=== PATIENT | female | born 1960 | race Caucasian/White ===

== ENCOUNTER 2022-05-20 14:30 | Observation (INO) | payer BC ==
[2022-05-20 16:02] LABS: #Basophils 0.1 10x3/uL (0.0-0.2); #Eosinphils 0.2 10x3/uL (0.0-0.5); #Monocytes 0.5 10x3/uL (0.0-1.1); #Neutrophils 5.2 10x3/uL (1.5-8.4); %Basophils 0.8 % (0.0-2.0); %Lymphocytes 22.3 % (18.0-47.0); %Monocytes 6.4 % (0.0-10.0); %Neutrophils 68.1 % (40.0-75.0); Hemoglobin 14.3 g/dL (12.0-15.5); Mean Corpuscular HGB CONC 33.4 g/dL (32.0-36.0); Mean Corpuscular Hemoglobin 29.8 pg (27.0-33.0); Mean Corpuscular Volume 89.2 fl (81.6-98.3); Mean Platelet Volume 11.5 fl (7.4-10.4); Platelet Count 269 10x3/uL (150-450); RBC Distribution Width 12.2 % (11.5-14.5); White Blood Cell (WBC) Count 7.6 10x3/uL (3.5-10.5)
[2022-05-20] MEDS ORDERED: Nitroglycerin 2% Ointment 1 INCH/1 GM Packet ONE (16:09)
[2022-05-20] MEDS ORDERED: Aspirin Chewable 81 MG TAB ONE (16:09)
[2022-05-20 16:12] LABS: ALT (SGPT) 31 U/L (8-55); AST (SGOT) 19 U/L (5-34); Albumin 4.5 g/dL (3.4-4.8); Alkaline Phosphatase 106 U/L (40-110); Anion Gap 14 mmol/L (10-20); BUN (Urea Nitrogen) 24 mg/dL (9.8-20.1); Bilirubin, Total 0.3 mg/dL (0.2-1.2); Calc. Creatinine Clearance 0 mL/min (70-130); Calcium 9.4 mg/dL (7.8-10.44); Carbon Dioxide 29 mmol/L (23-31); Chloride 96 mmol/L (98-107); Estimated GFR 79; Globulin 2.3 g/dL (2.4-3.5); Glucose 124 mg/dL (80-115); Lipase 16 U/L (8-78); Potassium 4.3 mmol/L (3.5-5.1); Protein, Total 6.8 g/dL (5.8-8.1); Sodium 135 mmol/L (136-145)
[2022-05-20 16:25] LABS: Bilirubin Neg (Negative); Blood, Urine Negative (Negative); Clarity Clear (Clear); Glucose, Urine (Dipstick) Normal (Negative); Ketone, Urine Negative (Negative); Leukocyte Negative (Negative); Nitrite Negative (Negative); Protein, Urine (Dipstick) Negative (Neg-Trace); Urobilinogen Normal mg/dL (Less than 2)
[2022-05-20] MEDS ORDERED: Nitroglycerin 0.4 MG TAB (25 Tab Bottle) SL PRN (18:51)
[2022-05-20] MEDS ORDERED: Ondansetron PF 4 MG/2 ML Vial IVP PRN (18:54)
[2022-05-20] MEDS ORDERED: Ondansetron ODT 4 MG TAB PO PRN (18:54)
[2022-05-20 19:00] LABS: Troponin I Less than 0.010 ng/mL (< 0.028)
[2022-05-20] MEDS ORDERED: Electrolyte Replacement Protocol 1 EACH FS SCH (19:00)
[2022-05-20] MEDS: Apixaban 5 MG TAB PO SCH (20:28)
[2022-05-20] MEDS ORDERED: Atorvastatin Calcium 10 MG TAB PO SCH (21:00)
[2022-05-20 22:15] LABS: Troponin I Less than 0.010 ng/mL (< 0.028)
[2022-05-20] MEDS: Acetaminophen 325 MG TAB PO PRN (22:36)
[2022-05-20] MEDS: Nitroglycerin 2% Ointment 1 INCH/1 GM Packet TOP SCH (22:39)
[2022-05-20 22:49] VITALS: BMI 46.3
[2022-05-21 04:11] LABS: #Basophils 0.1 10x3/uL (0.0-0.2); #Eosinphils 0.2 10x3/uL (0.0-0.5); #Monocytes 0.6 10x3/uL (0.0-1.1); #Neutrophils 4.5 10x3/uL (1.5-8.4); %Basophils 0.7 % (0.0-2.0); %Eosinophils 3.1 % (0.0-6.0); %Lymphocytes 28.1 % (18.0-47.0); %Monocytes 8.1 % (0.0-10.0); %Neutrophils 59.7 % (40.0-75.0); Hemoglobin 12.9 g/dL (12.0-15.5); Mean Corpuscular HGB CONC 33.5 g/dL (32.0-36.0); Mean Corpuscular Hemoglobin 30.1 pg (27.0-33.0); Platelet Count 244 10x3/uL (150-450); RBC Distribution Width 12.2 % (11.5-14.5); Red Blood Cell (RBC) Count 4.28 10x6/uL (3.90-5.03); White Blood Cell (WBC) Count 7.5 10x3/uL (3.5-10.5)
[2022-05-21 04:19] LABS: Anion Gap 15 mmol/L (10-20); BUN (Urea Nitrogen) 22 mg/dL (9.8-20.1); Calc. Creatinine Clearance 145 mL/min (70-130); Calcium 9.3 mg/dL (7.8-10.44); Carbon Dioxide 25 mmol/L (23-31); Cardiac Risk 2.8 (Less than 4.5); Chloride 98 mmol/L (98-107); Cholesterol 133 mg/dl (< 200 Desired); Estimated GFR 87; Glucose 113 mg/dL (80-115); HDL Cholesterol 48 mg/dL (>60 Neg Risk); LDL Cholesterol, Calculated 66 mg/dL; Magnesium 1.6 mg/dL (1.6-2.6); Potassium 3.7 mmol/L (3.5-5.1); Sodium 134 mmol/L (136-145); Triglycerides 96 mg/dL (Less than 150)
[2022-05-21] MEDS: Nitroglycerin 2% Ointment 1 INCH/1 GM Packet TOP SCH ×2 (05:29→15:39)
[2022-05-21] MEDS: Acetaminophen 325 MG TAB PO PRN ×2 (05:32→15:42)
[2022-05-21] MEDS ORDERED: Levothyroxine Sodium 75 MCG TAB PO SCH (06:00)
[2022-05-21] MEDS ORDERED: Magnesium 2 GM/50 ML(in water) 2 GM in Premix Bag 1 BAG IVPB SCH (08:00)
[2022-05-21] MEDS: Apixaban 5 MG TAB PO SCH (08:44)
[2022-05-21] MEDS: Carvedilol 25 MG TAB PO SCH ×2 (08:46→17:16)
[2022-05-21] MEDS ORDERED: FLUoxetine HCl 20 MG CAP PO SCH (09:00)
[2022-05-21] MEDS ORDERED: Furosemide 40 MG TAB PO SCH (09:00)
[2022-05-21] MEDS ORDERED: DULoxetine 30 MG CAP PO SCH (09:00)
[2022-05-21] MEDS ORDERED: Potassium Chloride 10 MEQ TAB PO SCH (09:00)
[2022-05-21] MEDS ORDERED: Aspirin Chewable 81 MG TAB PO SCH (09:00)
[2022-05-21] MEDS ORDERED: Amlodipine 10 MG TAB PO SCH (09:00)
[2022-05-21 13:02] VITALS: BP 131/69; TEMP 97.8
== END 2022-05-21 18:00 | disposition home or self-care (01) ==
LOC: CSHERS 14:30 → INTOOBSV 17:53 → CSHERHOLD 17:53 → CSHTELE 18:44
PROVIDERS: ADMIT Student in an Organized Health Care Education/Training Program; ATTEND Family Medicine
DX: R07.2 Precordial pain (principal); I44.0 Atrioventricular block, first degree; E78.5 Hyperlipidemia, unspecified; I12.9 Hypertensive chronic kidney disease with stage 1 through stage 4 chronic kidney disease, or unspecified chronic kidney disease; N18.2 Chronic kidney disease, stage 2 (mild); E03.9 Hypothyroidism, unspecified; I48.0 Paroxysmal atrial fibrillation; F32.9 Major depressive disorder, single episode, unspecified; G47.33 Obstructive sleep apnea (adult) (pediatric); M19.90 Unspecified osteoarthritis, unspecified site; Z79.890 Hormone replacement therapy; Z79.899 Other long term (current) drug therapy; Z88.0 Allergy status to penicillin; Z88.2 Allergy status to sulfonamides; Z86.79 Personal history of other diseases of the circulatory system
CPT/HCPCS: 36415; 71045; 80048; 80053; 80061; 81003; 83690; 83735; 83880; 84443; 84484; 85025; 93005; 93010; 94660; 94760; 96374; G0378; J3475

== ENCOUNTER 2023-08-21 21:23 | Observation (INO) | payer BC ==
[2023-08-21 22:28] LABS: #Basophils 0.08 10x3/uL (0.0-0.2); #Eosinphils 0.34 10x3/uL (0.0-0.5); #Monocytes 0.58 10x3/uL (0.0-1.1); #Neutrophils 5.68 10x3/uL (1.5-8.4); %Basophils 0.9 % (0.0-2.0); %Eosinophils 3.9 % (0.0-6.0); %Lymphocytes 22.9 % (18.0-47.0); %Monocytes 6.6 % (0.0-10.0); %Neutrophils 65.1 % (40.0-75.0); Hematocrit 40.8 % (34.9-44.5); Hemoglobin 13.8 g/dL (12.0-15.5); Mean Corpuscular HGB CONC 33.8 g/dL (32.0-36.0); Mean Corpuscular Volume 88.7 fL (81.6-98.3); Mean Platelet Volume 12.3 fL (7.4-10.4); Platelet Count 266 10x3/uL (150-450); RBC Distribution Width 12.3 % (11.5-14.5); White Blood Cell (WBC) Count 8.7 10x3/uL (3.5-10.5)
[2023-08-21 22:49] LABS: Troponin I 0.016 ng/mL (< 0.028)
[2023-08-21] MEDS ORDERED: Furosemide 40 MG (4 mL) VIAL ONE (22:58)
[2023-08-21] MEDS ORDERED: Nitroglycerin 2% Ointment 1 INCH/1 GM Packet ONE (22:58)
[2023-08-21] MEDS ORDERED: traMADol HCl 50 MG TAB PO PRN (23:08)
[2023-08-21] MEDS ORDERED: Ketorolac Tromethamine 30 MG (1 mL) VIAL IVP PRN (23:08)
[2023-08-21 23:21] LABS: ALT (SGPT) 39 U/L (8-55); AST (SGOT) 23 U/L (5-34); Albumin 3.8 g/dL (3.4-4.8); Alkaline Phosphatase 117 U/L (40-110); Anion Gap 16 mmol/L (10-20); BUN (Urea Nitrogen) 19 mg/dL (9.8-20.1); Bilirubin, Total 0.2 mg/dL (0.2-1.2); Calc. Creatinine Clearance 0 mL/min (70-130); Calcium 9.6 mg/dL (7.8-10.44); Carbon Dioxide 23 mmol/L (23-31); Chloride 103 mmol/L (98-107); Estimated GFR 86; Globulin 3.1 g/dL (2.4-3.5); Glucose 144 mg/dL (80-115); Potassium 4.1 mmol/L (3.5-5.1); Protein, Total 6.9 g/dL (5.8-8.1); Sodium 138 mmol/L (136-145)
[2023-08-21] MEDS ORDERED: hydrALAZINE 20 MG/ML VIAL SLOW IVP PRN (23:58)
[2023-08-22 00:13] VITALS: BMI 44.6
[2023-08-22] MEDS: Acetaminophen 325 MG TAB PO SCH (00:57)
[2023-08-22 01:41] LABS: Bilirubin Neg (Negative); Blood, Urine Negative (Negative); Clarity Clear (Clear); Glucose, Urine (Dipstick) Normal (Negative); Ketone, Urine Negative (Negative); Leukocyte Negative (Negative); Nitrite Negative (Negative); Protein, Urine (Dipstick) Negative (Neg-Trace); Urobilinogen Normal mg/dL (Less than 2)
[2023-08-22 01:57] LABS: Bacteria/HPF None Seen HPF (None Seen); CAUTI Indications for Culture Dysuria,urgency,freq; RBC/HPF None Seen HPF (0-3); Squamous Epithelial None Seen HPF (0-3); WBC/HPF None Seen HPF (0-3)
[2023-08-22 01:58] LABS: Urine Culture Reflex No No
[2023-08-22 02:58] LABS: #Basophils 0.07 10x3/uL (0.0-0.2); #Eosinphils 0.33 10x3/uL (0.0-0.5); #Monocytes 0.56 10x3/uL (0.0-1.1); #Neutrophils 4.91 10x3/uL (1.5-8.4); %Basophils 0.9 % (0.0-2.0); %Eosinophils 4.3 % (0.0-6.0); %Lymphocytes 23.5 % (18.0-47.0); %Monocytes 7.2 % (0.0-10.0); %Neutrophils 63.5 % (40.0-75.0); Hematocrit 38.7 % (34.9-44.5); Hemoglobin 12.9 g/dL (12.0-15.5); Mean Corpuscular HGB CONC 33.3 g/dL (32.0-36.0); Mean Corpuscular Hemoglobin 30.3 pg (27.0-33.0); Mean Corpuscular Volume 90.8 fL (81.6-98.3); Mean Platelet Volume 12.1 fL (7.4-10.4); Platelet Count 254 10x3/uL (150-450); RBC Distribution Width 12.5 % (11.5-14.5); Red Blood Cell (RBC) Count 4.26 10x6/uL (3.90-5.03); White Blood Cell (WBC) Count 7.7 10x3/uL (3.5-10.5)
[2023-08-22 03:11] LABS: ALT (SGPT) 34 U/L (8-55); AST (SGOT) 18 U/L (5-34); Albumin 3.6 g/dL (3.4-4.8); Alkaline Phosphatase 107 U/L (40-110); Anion Gap 14 mmol/L (10-20); BUN (Urea Nitrogen) 22 mg/dL (9.8-20.1); Bilirubin, Total 0.3 mg/dL (0.2-1.2); Calc. Creatinine Clearance 129 mL/min (70-130); Calcium 9.4 mg/dL (7.8-10.44); Carbon Dioxide 29 mmol/L (23-31); Chloride 100 mmol/L (98-107); Estimated GFR 80; Globulin 3.1 g/dL (2.4-3.5); Glucose 157 mg/dL (80-115); Potassium 3.6 mmol/L (3.5-5.1); Protein, Total 6.7 g/dL (5.8-8.1); Sodium 139 mmol/L (136-145)
[2023-08-22 03:19] LABS: Troponin I 0.022 ng/mL (< 0.028)
[2023-08-22] MEDS: Levothyroxine Sodium 75 MCG TAB PO SCH (06:35)
[2023-08-22] MEDS: Furosemide 40 MG (4 mL) VIAL SLOW IVP SCH (06:36)
[2023-08-22 08:47] LABS: Troponin I 0.016 ng/mL (< 0.028)
[2023-08-22] MEDS: hydrALAZINE 25 MG TAB PO SCH (09:07)
[2023-08-22] MEDS: Apixaban 5 MG TAB PO SCH (09:07)
[2023-08-22] MEDS: Spironolactone 25 MG TAB PO SCH (09:07)
[2023-08-22] MEDS: FLUoxetine HCl 20 MG CAP PO SCH (09:08)
[2023-08-22] MEDS: Pantoprazole DR 40 MG TAB PO SCH (09:08)
[2023-08-22] MEDS: Potassium Chloride 10 MEQ TAB PO SCH (09:08)
[2023-08-22] MEDS: Amlodipine 10 MG TAB PO SCH (09:08)
[2023-08-22] MEDS: Carvedilol 25 MG TAB PO SCH (09:08)
[2023-08-22] MEDS: Valsartan 80 MG TAB PO SCH (10:08)
[2023-08-22] MEDS: OXcarbazepine 300 MG TAB PO SCH (10:09)
[2023-08-22 12:48] VITALS: BP 145/76; TEMP 98
[2023-08-22 12:55] LABS: Hemoglobin A1c 6.1 % (4.0-6.0)
[2023-08-22] MEDS ORDERED: Atorvastatin Calcium 10 MG TAB PO SCH (21:00)
== END 2023-08-22 12:30 | disposition home or self-care (01) ==
LOC: CSHERS 21:23 → CSHTELE 23:11
PROVIDERS: ADMIT Internal Medicine; ATTEND Internal Medicine
DX: R07.2 Precordial pain (principal); I48.0 Paroxysmal atrial fibrillation; I11.0 Hypertensive heart disease with heart failure; I50.20 Unspecified systolic (congestive) heart failure; E78.5 Hyperlipidemia, unspecified; E03.9 Hypothyroidism, unspecified; I25.10 Atherosclerotic heart disease of native coronary artery without angina pectoris; F41.9 Anxiety disorder, unspecified; F32.A Depression, unspecified; E66.01 Morbid (severe) obesity due to excess calories; Z68.25 Body mass index [BMI] 25.0-25.9, adult; Z79.01 Long term (current) use of anticoagulants; Z79.890 Hormone replacement therapy; Z79.899 Other long term (current) drug therapy; Z90.710 Acquired absence of both cervix and uterus; Z90.49 Acquired absence of other specified parts of digestive tract; Z90.89 Acquired absence of other organs; Z88.0 Allergy status to penicillin; Z88.2 Allergy status to sulfonamides; Z95.818 Presence of other cardiac implants and grafts; Z95.0 Presence of cardiac pacemaker
CPT/HCPCS: 36415; 71045; 80053; 81001; 83036; 83880; 84145; 84484; 85025; 85379; 93005; 96374; 96376; G0378; J1940

== ENCOUNTER 2023-09-06 15:12 | Observation (INO) | payer BC ==
[2023-09-06] MEDS ORDERED: Aspirin Chewable 81 MG TAB ONE (15:54)
[2023-09-06 16:29] LABS: #Basophils 0.07 10x3/uL (0.0-0.2); #Eosinphils 0.18 10x3/uL (0.0-0.5); #Monocytes 0.79 10x3/uL (0.0-1.1); #Neutrophils 10.03 10x3/uL (1.5-8.4); %Basophils 0.6 % (0.0-2.0); %Eosinophils 1.4 % (0.0-6.0); %Lymphocytes 12.3 % (18.0-47.0); %Monocytes 6.2 % (0.0-10.0); %Neutrophils 79.1 % (40.0-75.0); Hematocrit 36.9 % (34.9-44.5); Hemoglobin 12.6 g/dL (12.0-15.5); Mean Corpuscular HGB CONC 34.1 g/dL (32.0-36.0); Mean Corpuscular Hemoglobin 30.8 pg (27.0-33.0); Mean Corpuscular Volume 90.2 fL (81.6-98.3); Mean Platelet Volume 12.3 fL (7.4-10.4); Platelet Count 271 10x3/uL (150-450); RBC Distribution Width 12.6 % (11.5-14.5); Red Blood Cell (RBC) Count 4.09 10x6/uL (3.90-5.03); White Blood Cell (WBC) Count 12.7 10x3/uL (3.5-10.5)
[2023-09-06 16:41] LABS: ALT (SGPT) 50 U/L (8-55); AST (SGOT) 25 U/L (5-34); Albumin 3.5 g/dL (3.4-4.8); Alkaline Phosphatase 97 U/L (40-110); Anion Gap 15 mmol/L (10-20); BUN (Urea Nitrogen) 18 mg/dL (9.8-20.1); Bilirubin, Total 0.4 mg/dL (0.2-1.2); Calc. Creatinine Clearance 0 mL/min (70-130); Calcium 9.4 mg/dL (7.8-10.44); Carbon Dioxide 23 mmol/L (23-31); Chloride 101 mmol/L (98-107); Estimated GFR 81; Globulin 3.3 g/dL (2.4-3.5); Glucose 121 mg/dL (80-115); Lipase 11 U/L (8-78); Magnesium 1.3 mg/dL (1.6-2.6); Protein, Total 6.8 g/dL (5.8-8.1); Sodium 135 mmol/L (136-145)
[2023-09-06 16:42] LABS: INR-International Normal Ratio 1.1; PTT 30.2 sec (22.0-33.0); Prothrombin Time 11.7 sec (9.5-12.1)
[2023-09-06 16:45] LABS: Troponin I 0.016 ng/mL (< 0.028)
[2023-09-06 16:55] LABS: SARS-CoV-2 E Target Negative; SARS-CoV-2 N2 Target Negative; SARS-CoV-2 NAA Rapid Test Not Detected (NotDetected); SARS-CoV-2 RdRP gene Negative
[2023-09-06] MEDS ORDERED: Magnesium 2 GM/50 ML BAG (IN WATER) ONE (17:54)
[2023-09-06 18:11] LABS: Bilirubin Neg (Negative); Blood, Urine Negative (Negative); Clarity Clear (Clear); Glucose, Urine (Dipstick) Normal (Negative); Ketone, Urine Negative (Negative); Leukocyte Negative (Negative); Nitrite Negative (Negative); Protein, Urine (Dipstick) Negative (Neg-Trace); Specific Gravity, Urine 1.005 (1.005-1.030); Urobilinogen Normal mg/dL (Less than 2); pH, Urine 6.5 (5.0-9.0)
[2023-09-06 18:18] LABS: Bacteria/HPF Rare-Few HPF (None Seen); CAUTI Indications for Culture Pelvic or flank pain; RBC/HPF None Seen HPF (0-3); Squamous Epithelial 0-3 HPF (0-3); WBC/HPF None Seen HPF (0-3)
[2023-09-06 18:19] LABS: Urine Culture Reflex No No
[2023-09-06 20:32] VITALS: BMI 50.1
[2023-09-06] MEDS: Furosemide 40 MG (4 mL) VIAL SLOW IVP SCH (21:52)
[2023-09-06] MEDS: Atorvastatin Calcium 10 MG TAB PO SCH (21:52)
[2023-09-06] MEDS: Carvedilol 25 MG TAB PO SCH (21:52)
[2023-09-06] MEDS: Apixaban 5 MG TAB PO SCH (21:53)
[2023-09-06] MEDS: hydrALAZINE 25 MG TAB PO SCH (21:53)
[2023-09-06] MEDS: OXcarbazepine 300 MG TAB PO SCH (21:56)
[2023-09-06] MEDS: Bumetanide 1 MG/4 ML VIAL IVP SCH (22:56)
[2023-09-07] MEDS: Acetaminophen 325 MG TAB PO SCH (00:23)
[2023-09-07 04:28] LABS: Anion Gap 14 mmol/L (10-20); BUN (Urea Nitrogen) 19 mg/dL (9.8-20.1); Calc. Creatinine Clearance 152 mL/min (70-130); Carbon Dioxide 27 mmol/L (23-31); Chloride 100 mmol/L (98-107); Estimated GFR 85; Glucose 133 mg/dL (80-115); Potassium 3.3 mmol/L (3.5-5.1); Sodium 138 mmol/L (136-145)
[2023-09-07 04:38] LABS: #Basophils 0.06 10x3/uL (0.0-0.2); #Eosinphils 0.25 10x3/uL (0.0-0.5); #Monocytes 0.72 10x3/uL (0.0-1.1); #Neutrophils 5.71 10x3/uL (1.5-8.4); %Basophils 0.7 % (0.0-2.0); %Eosinophils 2.9 % (0.0-6.0); %Lymphocytes 22.2 % (18.0-47.0); %Monocytes 8.3 % (0.0-10.0); %Neutrophils 65.6 % (40.0-75.0); Hematocrit 35.7 % (34.9-44.5); Hemoglobin 12.1 g/dL (12.0-15.5); Mean Corpuscular HGB CONC 33.9 g/dL (32.0-36.0); Mean Corpuscular Hemoglobin 30.6 pg (27.0-33.0); Mean Corpuscular Volume 90.4 fL (81.6-98.3); Mean Platelet Volume 11.7 fL (7.4-10.4); Platelet Count 249 10x3/uL (150-450); RBC Distribution Width 12.7 % (11.5-14.5); Red Blood Cell (RBC) Count 3.95 10x6/uL (3.90-5.03); White Blood Cell (WBC) Count 8.7 10x3/uL (3.5-10.5)
[2023-09-07] MEDS: Furosemide 40 MG (4 mL) VIAL SLOW IVP SCH (06:11)
[2023-09-07] MEDS: Levothyroxine Sodium 75 MCG TAB PO SCH (06:12)
[2023-09-07] MEDS ORDERED: Enoxaparin 40 MG (0.4 mL) SYRINGE SC SCH (09:00)
[2023-09-07] MEDS: FLUoxetine HCl 20 MG CAP PO SCH (09:20)
[2023-09-07] MEDS: DULoxetine 30 MG CAP PO SCH (09:20)
[2023-09-07] MEDS: Potassium Chloride 20 MEQ TAB PO SCH (09:20)
[2023-09-07] MEDS: Spironolactone 25 MG TAB PO SCH (09:21)
[2023-09-07] MEDS: Potassium Chloride 10 MEQ TAB PO SCH (09:21)
[2023-09-07] MEDS: Amlodipine 10 MG TAB PO SCH (09:21)
[2023-09-07] MEDS: Ferrous Sulfate 325 MG TAB PO SCH (09:21)
[2023-09-07] MEDS: Valsartan 80 MG TAB PO SCH (09:49)
[2023-09-08 03:36] LABS: #Basophils 0.06 10x3/uL (0.0-0.2); #Eosinphils 0.39 10x3/uL (0.0-0.5); #Monocytes 0.76 10x3/uL (0.0-1.1); #Neutrophils 5.41 10x3/uL (1.5-8.4); %Basophils 0.7 % (0.0-2.0); %Eosinophils 4.6 % (0.0-6.0); %Lymphocytes 20.8 % (18.0-47.0); %Neutrophils 64.4 % (40.0-75.0); Hematocrit 35.7 % (34.9-44.5); Mean Corpuscular HGB CONC 33.6 g/dL (32.0-36.0); Mean Corpuscular Hemoglobin 30.3 pg (27.0-33.0); Mean Corpuscular Volume 90.2 fL (81.6-98.3); Mean Platelet Volume 12.5 fL (7.4-10.4); Platelet Count 230 10x3/uL (150-450); RBC Distribution Width 12.6 % (11.5-14.5); Red Blood Cell (RBC) Count 3.96 10x6/uL (3.90-5.03); White Blood Cell (WBC) Count 8.4 10x3/uL (3.5-10.5)
[2023-09-08 03:46] LABS: Anion Gap 14 mmol/L (10-20); BUN (Urea Nitrogen) 25 mg/dL (9.8-20.1); Calc. Creatinine Clearance 147 mL/min (70-130); Calcium 9.1 mg/dL (7.8-10.44); Carbon Dioxide 25 mmol/L (23-31); Chloride 99 mmol/L (98-107); Estimated GFR 81; Glucose 126 mg/dL (80-115); Potassium 3.9 mmol/L (3.5-5.1); Sodium 134 mmol/L (136-145)
[2023-09-08] MEDS: OXcarbazepine 300 MG TAB PO SCH (06:43)
[2023-09-08] MEDS: Valsartan 80 MG TAB PO SCH (06:43)
[2023-09-08] MEDS: FLUoxetine HCl 20 MG CAP PO SCH (06:44)
[2023-09-08] MEDS: DULoxetine 30 MG CAP PO SCH (06:45)
[2023-09-08] MEDS: Carvedilol 25 MG TAB PO SCH (06:45)
[2023-09-08] MEDS: hydrALAZINE 25 MG TAB PO SCH (06:45)
[2023-09-08] MEDS: Amlodipine 10 MG TAB PO SCH (06:46)
[2023-09-08] MEDS: Potassium Chloride 10 MEQ TAB PO SCH (06:46)
[2023-09-08] MEDS: Spironolactone 25 MG TAB PO SCH (06:46)
[2023-09-08] MEDS: Apixaban 5 MG TAB PO SCH (06:47)
[2023-09-08] MEDS: Ferrous Sulfate 325 MG TAB PO SCH (07:25)
[2023-09-08] MEDS ORDERED: PROPOFOL 20 ML ONE (09:26)
[2023-09-08] MEDS ORDERED: Lidocaine 1% PF 5 ML VIAL ONE (09:26)
[2023-09-08] MEDS ORDERED: Etomidate 40 MG (20 mL) VIAL ONE (09:32)
[2023-09-08] MEDS ORDERED: PHENYLEPHRINE-NS 100 MCG/ML 10 ML SYRINGE ONE (09:33)
[2023-09-08 10:15] VITALS: TEMP 97.3
[2023-09-08 15:26] VITALS: BP 111/67
[2023-09-08] MEDS ORDERED: OXcarbazepine 300 MG TAB PO SCH (21:00)
[2023-09-08] MEDS ORDERED: Carvedilol 25 MG TAB PO SCH (21:00)
[2023-09-08] MEDS ORDERED: hydrALAZINE 25 MG TAB PO SCH (21:00)
[2023-09-08] MEDS ORDERED: Apixaban 5 MG TAB PO SCH (21:00)
[2023-09-09] MEDS ORDERED: Spironolactone 25 MG TAB PO SCH (08:00)
[2023-09-09] MEDS ORDERED: Valsartan 80 MG TAB PO SCH (09:00)
[2023-09-09] MEDS ORDERED: Ferrous Sulfate 325 MG TAB PO SCH (09:00)
[2023-09-09] MEDS ORDERED: Amlodipine 10 MG TAB PO SCH (09:00)
[2023-09-09] MEDS ORDERED: DULoxetine 30 MG CAP PO SCH (09:00)
[2023-09-09] MEDS ORDERED: FLUoxetine HCl 20 MG CAP PO SCH (09:00)
[2023-09-09] MEDS ORDERED: Potassium Chloride 10 MEQ TAB PO SCH (09:00)
== END 2023-09-08 13:31 | disposition home or self-care (01) ==
LOC: CSHERS 15:12 → CSHTELE 17:46
PROVIDERS: ADMIT Hospitalist; ATTEND Hospitalist
PROC: 5A2204Z Restoration of Cardiac Rhythm, Single (ICD-10-PCS; principal; 2023-09-08)
DX: I48.91 Unspecified atrial fibrillation (principal); I49.5 Sick sinus syndrome; I25.10 Atherosclerotic heart disease of native coronary artery without angina pectoris; I11.0 Hypertensive heart disease with heart failure; I50.21 Acute systolic (congestive) heart failure; E78.5 Hyperlipidemia, unspecified; E03.9 Hypothyroidism, unspecified; J96.01 Acute respiratory failure with hypoxia; I34.0 Nonrheumatic mitral (valve) insufficiency; F41.9 Anxiety disorder, unspecified; F32.A Depression, unspecified; G47.33 Obstructive sleep apnea (adult) (pediatric); E11.9 Type 2 diabetes mellitus without complications; I25.5 Ischemic cardiomyopathy; J40 Bronchitis, not specified as acute or chronic; E66.9 Obesity, unspecified; Z68.43 Body mass index [BMI] 50.0-59.9, adult; Z79.01 Long term (current) use of anticoagulants; Z79.890 Hormone replacement therapy; Z79.899 Other long term (current) drug therapy; Z88.2 Allergy status to sulfonamides; Z88.0 Allergy status to penicillin; Z95.0 Presence of cardiac pacemaker; Z90.710 Acquired absence of both cervix and uterus; Z98.890 Other specified postprocedural states; Z90.89 Acquired absence of other organs; Z90.49 Acquired absence of other specified parts of digestive tract
CPT/HCPCS: 36415; 71045; 80048; 80053; 81001; 83690; 83735; 83880; 84484; 85025; 85610; 85730; 92960; 93005; 93010; 94760; 96374; 96375; 96376; G0378; J1940; J2704; J3475; J3490; U0002